=== PATIENT | female | born 1995 | race Caucasian/White ===

== ENCOUNTER 2016-11-20 10:38 | Outpatient (CLI) | payer SELFPAY ==
[2016-11-20] MEDS ORDERED: NORMAL SALINE 10 ML SYRINGE FLUSH IVP PRN (10:44)
[2016-11-20 10:51] VITALS: RESP 18; TEMP 98.1
[2016-11-20 11:21] LABS: MEAN CORPUSCULAR HEMOGLOBIN 21.8 PG (27-31); MEAN PLATELET VOLUME 9.6 FL (7.4-12.2); RDW COEFFICIENT OF VARIATION 16.3 % (11.5-14.5); RED BLOOD COUNT 4.13 10^6/uL (4.20-5.40); WHITE BLOOD COUNT 9.45 10^3/uL (4.8-10.8)
[2016-11-20 11:57] LABS: CHLORIDE 105 meq/L (98-112); POTASSIUM 4.1 meq/L (3.8-5.2); SODIUM 136 meq/L (135-145)
[2016-11-20 11:58] LABS: BILIRUBIN,TOTAL 0.7 mg/dL (0.3-1.2); CALCIUM 8.2 mg/dL (8.7-10.7); CREATININE 0.3 mg/dL (0.50-1.20); EST GLOMERULAR FILTRATION > 60 (>60 ml/min/1.73m(2)); GLUCOSE 70 mg/dL (78-110)
[2016-11-20 11:59] LABS: ASPARTATE AMINO TRANSFERASE 20 IU/L (8-39)
[2016-11-20 12:00] LABS: TOTAL PROTEIN 6.3 g/dL (6.1-8.0)
--- NOTE | 2016-11-23 22:05 | PDOC(PROG) ---
Intake - - Reason for Visit/Chief Complaint: NST Admitted From: Home - LMP: 03/06/16 Estimated Due Date: 12/11/16 Gestational Age in Weeks and Days: 37 Weeks and 3 Days : 2 Para: 1 Term Births: 1 Living Children: 1 - Labs Blood Type and Rh: O+ Group B Strep: Unknown Hepatitis B Surface Antigen: Absent HIV: Negative Rubella Status: Immune VDRL/RPR: Absent Maternal - Vital Signs Last Taken Vital Signs: Vital Signs - Last Taken Temperature 98.1 F 11/20/16 10:50 Pulse Rate 128 H 11/20/16 10:50 Respiratory Rate 18 11/20/16 10:50 Blood Pressure 101/76 11/20/16 10:50 Pulse Ox 98 11/20/16 10:50 - Uterine Activity Uterine Contraction Monitor Mode: External Uterine Contraction Pattern: Absent - Vaginal Discharge Vaginal Bleeding Amount: None Vaginal Discharge Amount: Small Vaginal Discharge Description: Other (please comment) Vaginal Discharge Odor: Odorless Monitoring - Uterine Activity Uterine Contraction Monitor Mode: External Uterine Contraction Pattern: Absent Results - Labs CBC and BMP: 11/20/16 11:02 11/20/16 11:02 Assessment and Plan - Patient Problems (1) Abdominal pain in Status: Acute
== END 2016-11-20 12:13 | disposition home or self-care (01) ==
LOC: OBOP 10:38
PROVIDERS: ATTEND Family Medicine
DX: O26.893 Other specified pregnancy related conditions, third trimester (principal); R10.84 Generalized abdominal pain; W22.8XXA Striking against or struck by other objects, initial encounter; O10.013 Pre-existing essential hypertension complicating pregnancy, third trimester; Z36 Encounter for antenatal screening of mother; Z3A.37 37 weeks gestation of pregnancy
CPT/HCPCS: 80053; 83615; 84550; 85025; 87150

== ENCOUNTER 2016-12-01 13:46 | Outpatient (CLI) | payer SELFPAY ==
[2016-12-01 14:00] VITALS: RESP 20; TEMP 98.2
[2016-12-01] MEDS ORDERED: Sodium Chloride 0.9% 50 ML IV PRN (14:00)
[2016-12-01] MEDS ORDERED: HEPARIN 500 UNIT/5 ML SYRINGE FOR CENTRAL LINE IVP PRN (14:00)
[2016-12-01] MEDS ORDERED: Iron Sucrose Inj 300 MG in Sodium Chloride 0.9% 250 ML IV ONE (14:00)
[2016-12-01] MEDS: NORMAL SALINE 10 ML SYRINGE FLUSH IVP PRN ×2 (14:10→15:50)
== END 2016-12-01 15:51 | disposition home or self-care (01) ==
LOC: IV THERAPY 13:46
PROVIDERS: ATTEND Family Medicine
DX: O26.893 Other specified pregnancy related conditions, third trimester (principal); D64.9 Anemia, unspecified; O99.333 Smoking (tobacco) complicating pregnancy, third trimester; Z3A.38 38 weeks gestation of pregnancy
CPT/HCPCS: 96365; 96366; 99211; J1756; J7050

== ENCOUNTER 2016-12-09 12:05 | Outpatient (CLI) | payer SELFPAY ==
[2016-12-09] MEDS ORDERED: NORMAL SALINE 10 ML SYRINGE FLUSH IVP PRN (12:09)
[2016-12-09 12:33] LABS: HEMATOCRIT 34.3 % (37.0-47.0); HEMOGLOBIN 9.8 g/dL (12.0-16.0); MEAN CORPUSCULAR HGB CONC 28.6 g/dL (33-37); MEAN PLATELET VOLUME 9.9 FL (7.4-12.2); RDW COEFFICIENT OF VARIATION 20.8 % (11.5-14.5); RED BLOOD COUNT 4.46 10^6/uL (4.20-5.40); WHITE BLOOD COUNT 8.07 10^3/uL (4.8-10.8)
[2016-12-09 12:38] VITALS: RESP 20; TEMP 98.1
[2016-12-09 12:45] LABS: ASPARTATE AMINO TRANSFERASE 19 IU/L (8-39); BILIRUBIN,TOTAL 0.7 mg/dL (0.3-1.2); BLOOD UREA NITROGEN 4 mg/dL (7-22); CALCIUM 8.8 mg/dL (8.7-10.7); CHLORIDE 105 meq/L (98-112); CREATININE 0.4 mg/dL (0.50-1.20); EST GLOMERULAR FILTRATION > 60 (>60 ml/min/1.73m(2)); GLUCOSE 82 mg/dL (78-110); POTASSIUM 3.7 meq/L (3.8-5.2); SODIUM 138 meq/L (135-145); TOTAL PROTEIN 6.3 g/dL (6.1-8.0); URIC ACID 3.9 mg/dl (2.5-6.2)
[2016-12-09] MEDS ORDERED: ACETAMINOPHEN 325 MG TABLET PO ONE ×2 (13:00→13:04)
--- NOTE | 2016-12-09 18:40 | DI ---
LIMITED OBSTETRICAL ULTRASOUND, 12/09/2016 12:10 PM Clinical History: Gestational hypertension. Previous Exam: 11/13/2016. ADJUSTED LMP: 03/06/2016. There is a single live IUP currently in vertex presentation. Amnionic fluid content is normal. Amniot ic fluid index is 12.6 cm. activity is observed as follows: Cardiac and extremity. The placenta is posterior corpus and Grade 2. heart rate is 139 beats/minute and regular. BPD, HC, AC, and FL measurements are 97 mm, 333 mm, 352 mm, and 76 mm, respectively. These measurements correspond to EGA values of 39 weeks 5 days, 38 weeks 1 day, 39 weeks 1 day, and 39 weeks 0 days, respectively. Com posite EGA is 39 weeks 0 days. The US EDC is 12/16/2016. EDC by adjusted LMP is 12/11/2016. LMP percenti le is 58%. Estimated weight is 3658 g, plus or minus, 534 g. Well formed distal femoral epiphys es are visualized. Readin. Single live fetus with vertex presentation and normal amniotic fluid content. Placenta is posteri or corpus and grade 2. Amnionic fluid index is 12.6 cm. 2. Composite EGA is 39 weeks 0 days with an ultrasound EDC of 12/16/2016. Based on the adjusted LMP of 03/06/2016, the EDC would be 12/11/2016. 3. LMP percentile is 58%. Estimated weight is 3658 g, plus or minus, 534 g.
== END 2016-12-09 14:30 | disposition home or self-care (01) ==
LOC: OBOP 12:05
PROVIDERS: ATTEND Family Medicine
DX: O13.3 Gestational [pregnancy-induced] hypertension without significant proteinuria, third trimester (principal); Z3A.40 40 weeks gestation of pregnancy
CPT/HCPCS: 59025; 76815; 80053; 83615; 84550; 85025; 99211

== ENCOUNTER → 2016-12-09 | Outpatient (CLI) | payer SELFPAY ==
[2016-12-09 12:38] LABS: BILIRUBIN,URINE NEGATIVE (NEG); CLARITY,URINE CLEAR (CLEAR); GLUCOSE, URINE (UA) NEGATIVE (NEG); LEUKOCYTE ESTERASE ,URINE MODERATE (NEG); NITRATE,URINE NEGATIVE (NEG); OCCULT BLOOD,URINE NEGATIVE (NEG); PH,URINE 7.5 (5.0-8.5); PROTEIN,URINE NEGATIVE (NEG)
[2016-12-09 12:58] LABS: URINE SAMPLE TYPE CLEAN CATCH URINE
[2016-12-09 12:59] LABS: BACTERIA,URINE MODERATE; SQUAMOUS EPITHELIAL CELL,UR RARE
== END ==
LOC: MOB LAB 11:33
PROVIDERS: ATTEND Family Medicine
DX: O26.893 Other specified pregnancy related conditions, third trimester (principal); R30.0 Dysuria; Z3A.39 39 weeks gestation of pregnancy
CPT/HCPCS: 81001

== ENCOUNTER 2016-12-11 00:37 | Inpatient (IN) | payer SELFPAY ==
[2016-12-11] MEDS ORDERED: TERBUTALINE SULFATE 1 MG/1 ML SDV SUBCUT PRN (00:41)
[2016-12-11] MEDS ORDERED: Nalbuphine Inj 20 MG/ML Ampule IVP PRN ×2 (00:41→10:14)
[2016-12-11] MEDS ORDERED: NORMAL SALINE 10 ML SYRINGE FLUSH IVP PRN (00:41)
[2016-12-11] MEDS ORDERED: NALOXONE 0.4 MG/1 ML VIAL IVP PRN (00:41)
[2016-12-11] MEDS ORDERED: Naloxone Inj 0.01 MG in Normal Saline Flush 1 ML IVP PRN (00:41)
[2016-12-11] MEDS ORDERED: CefOXitin Inj 2 GM in Sodium Chloride 0.9% 100 ML IV PRN (00:41)
[2016-12-11] MEDS ORDERED: Metoclopramide Inj 10 MG/2 ML VIAL IV PRN (00:41)
[2016-12-11] MEDS ORDERED: CITRIC ACID/SODIUM CITRATE 30 ML CUP PO PRN (00:41)
[2016-12-11] MEDS ORDERED: ePHEDrine Inj 5 MG in Normal Saline Flush 1 ML IVP PRN (00:41)
[2016-12-11] MEDS ORDERED: Lidocaine 1% 10 MG/ML - 20 ML VIAL SUBCUT PRN (00:41)
[2016-12-11] MEDS ORDERED: METHYLERGONOVINE MALEATE 0.2 MG/1 ML VIAL IM PRN ×2 (00:41→10:14)
[2016-12-11] MEDS ORDERED: Phenylephrine Inj 50 MCG in Normal Saline Flush 0.5 ML IVP PRN (00:41)
[2016-12-11] MEDS ORDERED: Famotidine Inj 20 MG in Normal Saline Flush 10 ML IVP PRN ×4 (00:41)
[2016-12-11] MEDS ORDERED: BUTORPHANOL TARTRATE 2 MG/1 ML VIAL IVP PRN (00:41)
[2016-12-11] MEDS ORDERED: CALCIUM CARBONATE 500 MG (TUMS) CHEWABLE TABLET PO PRN ×2 (00:41→10:14)
[2016-12-11] MEDS ORDERED: OXYTOCIN 10 UNIT/1 ML IM PRN (00:41)
[2016-12-11] MEDS ORDERED: LIDOCAINE W/ SODIUM BICARB 0.5 ML SYR SUBD PRN (00:41)
[2016-12-11] MEDS ORDERED: ONDANSETRON 4 MG/2 ML VIAL IVP PRN ×2 (00:41→10:14)
[2016-12-11] MEDS ORDERED: diphenhydrAMINE 50 MG/1 ML VIAL IVP PRN ×2 (00:41→10:14)
[2016-12-11] MEDS ORDERED: MISOPROSTOL 200 MCG TABLET RECTAL PRN (00:41)
[2016-12-11] MEDS ORDERED: Carboprost Inj 250 MCG/ML AMP IM PRN ×2 (00:41→10:14)
[2016-12-11 02:01] LABS: HEMATOCRIT 35.3 % (37.0-47.0); HEMOGLOBIN 10.4 g/dL (12.0-16.0); MEAN CORPUSCULAR HEMOGLOBIN 22.4 PG (27-31); MEAN CORPUSCULAR HGB CONC 29.5 g/dL (33-37); MEAN PLATELET VOLUME 9.9 FL (7.4-12.2); RDW COEFFICIENT OF VARIATION 20.9 % (11.5-14.5); RED BLOOD COUNT 4.64 10^6/uL (4.20-5.40); WHITE BLOOD COUNT 9.25 10^3/uL (4.8-10.8)
[2016-12-11 02:10] LABS: ASPARTATE AMINO TRANSFERASE 18 IU/L (8-39); BILIRUBIN,TOTAL 0.6 mg/dL (0.3-1.2); BLOOD UREA NITROGEN 8 mg/dL (7-22); CALCIUM 9.5 mg/dL (8.7-10.7); CHLORIDE 103 meq/L (98-112); CREATININE 0.4 mg/dL (0.50-1.20); EST GLOMERULAR FILTRATION > 60 (>60 ml/min/1.73m(2)); GLUCOSE 85 mg/dL (78-110); POTASSIUM 3.8 meq/L (3.8-5.2); SODIUM 139 meq/L (135-145); TOTAL PROTEIN 6.8 g/dL (6.1-8.0); URIC ACID 3.6 mg/dl (2.5-6.2)
[2016-12-11] MEDS: Lactated Ringers-OB Dept 1,000 ML PRIMARY IV SCH ×2 (02:11→07:25)
[2016-12-11] MEDS: Misoprostol Tab 100 MCG TAB VAGINAL SCH ×2 (02:12→21:44)
[2016-12-11] MEDS: fentaNYL Inj 100 MCG/2 ML VIAL IV PRN ×2 (05:46→06:48)
[2016-12-11] MEDS: Oxytocin 20 Units + LR 1,000 ML IV SCH ×2 (07:33→10:11)
--- NOTE | 2016-12-11 08:20 | OB.DEL.SUM ---
Delivery Note Delivery Summary: Pt is a 21 yo at 40 weeks by first trimester u/s who has had an uncomplicated course with the exception of elevated blood pressures noted in the clinic and at labor and delivery 2 days ago. Her labs, NST and u/s at that time were unremarkable. She presented for cervical ripening this morning and was still 3/thick. She received 1 dose of cytotec and proceeded into active labor. She was c/c/+2 at 0720 and began pushing a short time later. She pushed several times to the delivery of a viable female infant over an intact perineum. The nose and mouth were suctioned with a bulb suction and the cord was doubly clamped by myself and cut by the father of the baby. Baby was crying and then placed on mom's chest. Cord blood and cord gases were sent for analysis. Time of delivery was 07. The placenta delivered spontaneously and intact with a 3 vessel cord at 0733. 20 mU of pitocin were infused but the uterus was still boggy. Therefore, the bladder was drained of 100 cc of clear urine with a red rubber catheter. With bimanual massage, the uterus firmed up nicely and her vaginal bleeding slowed. The vagina and perineum were examined and bilateral superficial periurethral lacerations were noted. They were hemostatic, and thus not repaired. Apgars were 9 at 1 minute and 10 at 5 minutes. Baby weighed 8#3oz and was 20 inches long. Both mom and baby tolerated delivery well and are in stable condition at this time.
[2016-12-11] MEDS ORDERED: Ondansetron ODT Tab 4 MG TAB PO PRN (10:14)
[2016-12-11] MEDS ORDERED: Oxytocin 20 Units + LR 1,000 ML IV SCH (10:14)
[2016-12-11] MEDS ORDERED: Methylergonovine Tab 0.2 MG TAB PO PRN (10:14)
[2016-12-11] MEDS ORDERED: HYDROcodone-APAP 5 MG -325 MG TABLET PO PRN (10:14)
[2016-12-11] MEDS ORDERED: diphenhydrAMINE 25 MG CAPSULE PO PRN (10:14)
[2016-12-11] MEDS ORDERED: DIPH,PERTUSS,TET(ADACEL) VAC/PF 0.5 ML (Tdap) IM SCH (10:14)
[2016-12-11] MEDS ORDERED: ACETAMINOPHEN 325 MG TABLET PO PRN (10:14)
[2016-12-11] MEDS ORDERED: BENZOCAINE/MENTHOL SPRAY 56 GM BOTTLE TOPICAL PRN (10:14)
[2016-12-11] MEDS ORDERED: OXYTOCIN 10 UNIT/1 ML IM ONE (10:14)
[2016-12-11] MEDS ORDERED: GLYCERIN/WITCH HAZEL 1 BOX TOPICAL PRN (10:14)
[2016-12-11] MEDS ORDERED: LANOLIN HPA 40 GM TUBE TOPICAL PRN (10:14)
[2016-12-11] MEDS ORDERED: MISOPROSTOL 200 MCG TABLET RECTAL ONE (10:14)
[2016-12-11] MEDS: IBUPROFEN 800 MG TABLET PO PRN ×2 (11:31→21:46)
[2016-12-11] MEDS: NORMAL SALINE 10 ML SYRINGE FLUSH IVP PRN (15:05)
[2016-12-11] MEDS: DOCUSATE 100 MG CAPSULE PO SCH ×2 (15:25→20:26)
[2016-12-11] MEDS ORDERED: cefTRIAXone Inj 1 GM in Sodium Chloride 0.9% 100 ML IV ONE (19:39)
[2016-12-12 05:51] LABS: HEMATOCRIT 27.8 % (37.0-47.0); HEMOGLOBIN 7.9 g/dL (12.0-16.0); MEAN CORPUSCULAR HGB CONC 28.4 g/dL (33-37); MEAN PLATELET VOLUME 10.9 FL (7.4-12.2); RDW COEFFICIENT OF VARIATION 20.3 % (11.5-14.5); RED BLOOD COUNT 3.59 10^6/uL (4.20-5.40); WHITE BLOOD COUNT 9.66 10^3/uL (4.8-10.8)
[2016-12-12] MEDS ORDERED: Iron Sucrose Inj 300 MG in Sodium Chloride 0.9% 250 ML IV ONE (09:00)
[2016-12-12] MEDS: Prenatal Multivitamin Tab 1 TAB TAB PO SCH (09:09)
[2016-12-12] MEDS: DOCUSATE 100 MG CAPSULE PO SCH ×2 (09:09→20:30)
[2016-12-12] MEDS: NORMAL SALINE 10 ML SYRINGE FLUSH IVP PRN ×2 (09:09→09:10)
[2016-12-12] MEDS: IBUPROFEN 800 MG TABLET PO PRN (10:43)
--- NOTE | 2016-12-12 15:56 | OB.PROGRES ---
Subjective Post Day: 1 Pain Management: PO Powers Catheter: No Flatus: Yes Diet: Regular Girard Feeding Method: Exculsively Ambulating: Yes Concerns / Additional Information: Denies dizziness, chest pain, weakness. Tolerated her iron infusion this morning well. Did have a UTI diagnosed earlier this week but did not excelsior picker the macrobid due to lack of funds. Received 1 dose of rocephin last noc. Baby is having issues with jaundice and poor feeding. Objective - General General Appearance: POSITIVE: No Acute Distress, Cooperative - Cardiovacular Cardiovascular Exam: POSITIVE: RRR, No Murmur Edema: +1 Pedal Edema Extremities: Negative Sam's - Bilaterally - Respiratory Respiratory Exam: POSITIVE: Clear to Auscultation - Bilaterally, Breathing Non Labored Assesstment / Plan (1) Status post normal vaginal delivery Current Visit: Yes Status: Acute Support Text: -routine cares. -breast feeding support needed. -rh positive. -rubella immune. -d/c home probably tomorrow. (2) Iron deficiency anemia Current Visit: Yes Status: Acute Support Text: -pt received 300 mg of IV iron this am, tolerated well. Will repeat venofer in 2 weeks and will check another CBC at that time as well. She is currently asymptomatic from her anemia. Vital signs are also stable. (3) UTI (urinary tract infection) Current Visit: Yes Status: Acute Qualifiers: Urinary tract infection type: acute cystitis Hematuria presence: without hematuria Qualified Description: Acute cystitis without hematuria Qualifier Code(s): (N30.00) Acute cystitis without hematuria Support Text: -this was diagnosed PRIOR to hospitalization (on 12/09), but pt had not started antibiotics due to no money to pay for them. She was complaining of dysuria last noc and was given 1 dose of rocephin. She will get another dose tonight.
[2016-12-12] MEDS ORDERED: cefTRIAXone Inj 1 GM in Sodium Chloride 0.9% 100 ML IV ONE (20:00)
[2016-12-13 05:31] LABS: HEMATOCRIT 27.8 % (37.0-47.0); HEMOGLOBIN 7.7 g/dL (12.0-16.0); MEAN CORPUSCULAR HEMOGLOBIN 21.8 PG (27-31); MEAN CORPUSCULAR HGB CONC 27.7 g/dL (33-37); MEAN PLATELET VOLUME 10.5 FL (7.4-12.2); RDW COEFFICIENT OF VARIATION 20.7 % (11.5-14.5); RED BLOOD COUNT 3.54 10^6/uL (4.20-5.40); WHITE BLOOD COUNT 8.19 10^3/uL (4.8-10.8)
[2016-12-13] MEDS: Prenatal Multivitamin Tab 1 TAB TAB PO SCH (08:16)
[2016-12-13] MEDS: DOCUSATE 100 MG CAPSULE PO SCH (08:16)
[2016-12-13 08:41] VITALS: RESP 16; TEMP 98.3
--- NOTE | 2016-12-13 11:45 | DCSUMMARY ---
Hospitalization Summary Admit Date: 12/11/16 Discharge Date: 12/13/16 Primary Diagnosis:: Gestational Hypertension Delivery Type: Vaginal Hospital Course: Pt had a normal, uncomplicated vaginal delivery. / Postop Complications: Pt had a normal course. Her blood pressures remained in the 130s/80s range. She was not having BARBER or RUQ pain. She was not symptomatic from her anemia, which had been chronic throughout her . She received 1 dose of IV iron on PPD #1. She also received 2 doses of rocephin for a UTI that was diagnosed earlier this week, but the pt had never picked up her oral antibiotics due to lack of funds. She denies dysuria on the day of discharge. Complications: Baby was noted to have BRENDON+, was on the bilirubin protocol. Bilirubin levels never reached levels necessitating phototherapy. She will be followed as an out patient. Exam - Vitals Vital Signs: Vital Signs Temperature 98.3 F Temperature Source Oral Pulse Rate [Apical] 88 Pulse Rate [Pulse Oximeter] 85 Pulse Rate 80 Respiratory Rate 16 Blood Pressure [Right Arm] 136/89 Blood Pressure 145/80 Pulse Ox 97 Oxygen Delivery Method Room Air Height 5 ft 1 in Weight 198 lb - General General Appearance: POSITIVE: No Acute Distress, Cooperative - Head Head Exam: POSITIVE: Normal Inspection - Neck Neck Exam: POSITIVE: Normal Inspection, Full ROM, No Tenderness - Respiratory Respiratory Exam: POSITIVE: Clear to Auscultation - Bilaterally, Breathing Non Labored - Cardiovascular Cardiovascular Exam: POSITIVE: RRR, No Murmur - GI/Abdominal GI/Abdominal Exam: POSITIVE: Normal Bowel Sounds, Non Tender, Non Distended, Soft - Extremities Extremities Exam: POSITIVE: Normal Inspection, Normal Capillary Refill - Neurological Neurological Exam: POSITIVE: Alert, Oriented x 3 - Psychiatric Psychiatric Exam: POSITIVE: Normal Affect, Normal Mood - Integumentary Integumentary Exam: POSITIVE: Warm, Dry, Pallor (slight) Patient Problems - Patient Problem List (1) Status post normal vaginal delivery Current Visit: Yes Status: Acute (2) Iron deficiency anemia Current Visit: Yes Status: Acute Qualifiers: Iron deficiency anemia type: inadequate dietary iron intake Qualified Description: Iron deficiency anemia secondary to inadequate dietary iron intake Qualifier Code(s): (D50.8) Other iron deficiency anemias (3) UTI (urinary tract infection) Current Visit: Yes Status: Acute Qualifiers: Urinary tract infection type: acute cystitis Hematuria presence: without hematuria Qualified Description: Acute cystitis without hematuria Qualifier Code(s): (N30.00) Acute cystitis without hematuria
== END 2016-12-13 12:45 | disposition home or self-care (01) | DRG 775 ==
LOC: OBIP 00:37
PROVIDERS: ADMIT Family Medicine; ATTEND Family Medicine
PROC: 10E0XZZ Delivery of Products of Conception, External Approach (ICD-10-PCS; principal; 2016-12-11)
DX: O13.4 Gestational [pregnancy-induced] hypertension without significant proteinuria, complicating childbirth (principal); O71.82 Other specified trauma to perineum and vulva; Z3A.40 40 weeks gestation of pregnancy; Z37.0 Single live birth
CPT/HCPCS: 36415; 80053; 81003; 83615; 84550; 85025; 85027; 86850; 86900; 86901; J0696; J1756; J2210; J3010; J7050; J7120

== ENCOUNTER 2017-02-24 15:05 | Emergency (ER) | payer SELFPAY ==
[2017-02-24 15:21] VITALS: RESP 14; TEMP 97.6
--- NOTE | 2017-02-24 15:28 | PDOC ---
Neuro Symptoms / Deficit HPI - General Chief Complaint: Neurological Complaints Stated Complaint: FACIAL NUMBNESS Date Seen by Provider: 02/24/17 Time Seen by Provider: 15:23 Source: POSITIVE: Patient Exam Limitations: POSITIVE: No limitations Nurse's Notes Reviewed & Considered: Yes - History of Present Illness Initial Comments: Patient comes in today with a chief complaint of left-sided facial numbness. Patient has 3 day history of increasing left-sided facial numbness left-sided facial droop, and inability to blink her left eye. She denies any fever chills sweats, nausea vomiting or diarrhea, no chest pain, no shortness of breath, no cough. She denies any recent sick contacts. She denies any other neurological symptoms, i.e. no unilateral weakness or lateralizing signs of her extremities. Body Location Affected: REPORTS: Head Timing: REPORTS: Abrupt Duration: >24 hours Severity: Moderate Quality: REPORTS: Other (Numbness) Character of Deficit(s): REPORTS: Left (Left face), Facial, Altered Sensation, Other (Cannot blink her left eye, cannot smile symmetrically with left-sided facial droop.) Usual Ability to Walk/Stand: REPORTS: Walks w/o Assistance Usual Cognition: REPORTS: Alert & Oriented x3 Similar Symptoms Previously: No Recently seen/treated/hospitalized: No Any Prior Injuries Related to Current Complaint?: No - Patient Home Medications Home Medications: Home Medications Ferrous Gluconate 324 mg PO TID #90 tab 11/20/16 Vits W-Ca,Fe,FA(<1Mg) [] 1 each PO DAILY 11/20/16 Docusate Sodium [Colace] 100 mg PO BID #30 cap 12/13/16 - Patient Allergies Allergies/Adverse Reactions: Allergies Allergy/AdvReac Type Severity Reaction Status Date / Time No Known Allergies Allergy Verified 12/12/16 06:57 Past Medical History - heen HEENT History: Denies History Cardiovascular History: Hypertension, Other (please comment) Additional Cardiovasular History: HEART MURMUR Respiratory History: Denies History Gastrointestinal History: Denies History Genitourinary History: Denies History Endocrine History: Denies History Musculoskeletal History: Denies History Prosthesis or Implant: No Neurological History: Denies History Blood Disorders: Denies History Psychiatric History: Denies History Cancer History: Denies History In Past Year Been Physically Harmed or Verbally Threatened: No History of MDRO: No Tobacco Use: Current Every Day Smoker Alcohol Use: None Substance Use Type: None Previous Surgical History: Yes Type / Date of Surgery: tonsilectomy Anesthesia Reactions: No Malignant Hyperthermia: No Significant Family History: No pertinent family hx ROS - Limitations ROS Limitations: No Limitations Constitution: REPORTS: Denies Symptoms Cardiovascular: REPORTS: Denies Cardiac Symptoms Respiratory: REPORTS: Denies Resp Symptoms Neurological: REPORTS: Numbness, Facial Asymmetry (She was inability to raise her left eyebrow and wrinkle her left forehead. She has loss of left eyelid blinked. She is unable to elevate the corner of her mouth on the left.) Gastrointestinal: REPORTS: Denies GI Symptoms Endocrine: REPORTS: Denies Symptoms Musculoskeletal: REPORTS: Denies MS Symptoms Genitourinary: REPORTS: Denies Symptoms Eyes: REPORTS: Other (Dry left eye) ENT: REPORTS: Denies Symptoms Skin: REPORTS: Denies Skin Symptoms Lympathic: REPORTS: Denies Lympathic Symptoms Immunologic: POSITIVE: Denies Symptoms Psychiatric: POSITIVE: Denies Psych Symptoms Neuro Symptoms / Deficit Exam - General Appearance General Appearance: POSITIVE: No Acute Distress - HEENT HEENT: POSITIVE: Ears Inspection Nml, Nose Inspection Nml, Pharynx Inspect. Nml , Other (Left-sided facial droop, with inability to raise her left eyebrow, inability to raise left side of her lips.) - Pupil Size Pupil Size: 4 mm: Bilateral - Neuro / Psych Higher Functions: POSITIVE: Oriented to Person, Oriented to Place, Oriented to Time, Normal Speech, Normal Cognition, Appropriate Mood, Appropriate Affect Cranial Nerves: POSITIVE: Facial Palsy (Left-sided facial palsy with forehead involved), Forehead Involved Cerebellar: POSITIVE: Normal As Tested Peripheral Exam: POSITIVE: Sensation Normal, Motor Normal, Reflexes Normal Reflexes: Patellar (R): 3+, Patellar (L): 3+, Radial (R): 3+, Radial (L): 3+ - Neck Neck: POSITIVE: Supple, Non-Tender - Respiratory Respiratory: POSITIVE: No Respiratory Distress, Breath Sounds Normal - Cardiovascular Cardiovascular: POSITIVE: Regular Rate & Rhythm, Heart Sounds Normal - Abdomen Abdomen: Soft: (All Quadrants), Normal Bowel Sounds: (All Quadrants), Denies Tenderness: (All Quadrants) - Skin Skin: POSITIVE: Intact, Normal For Race, Warm, Dry, No Rash - Extremities Extremity: Non-Tender: (All Extremities), Normal ROM: (All Extremities), Normal Inspection: (All Extremities) Neuro Symptom/Deficit Progress - Results Reviewed by me Lab Results Reviewed: Yes Lab Results:: Laboratory Results 02/24/17 Range/Units 15:33 WBC 10.89 H (4.8-10.8) 10^3/uL RBC 5.21 (4.20-5.40) 10^6/uL Hgb 13.1 (12.0-16.0) g/dL Hct 41.9 (37.0-47.0) % MCV 80.4 L (81-99) FL MCH 25.1 L (27-31) PG MCHC 31.3 L (33-37) g/dL RDW Std Deviation 47.5 (39-50) fL RDW Coeff of Duane 16.1 H (11.5-14.5) % Plt Count 408 H (140-350) 10*3/uL MPV 9.4 (7.4-12.2) FL Immature Gran % (Auto) 0.2 (0-5) % Neut % (Auto) 68.8 (50-80) % Lymph % (Auto) 19.7 (10-50) % [place] % (Auto) 10.1 (5-15) % Eos % (Auto) 0.8 (0-8) % Baso % (Auto) 0.4 (0-1) % Immature Gran # (Auto) 0.02 10*3/UL Neut # (Auto) 7.49 10*3/UL Lymph # (Auto) 2.15 10*3/uL [place] # (Auto) 1.10 H (0.3-0.8) 10*3/UL Eos # (Auto) 0.09 10*3/UL Baso # (Auto) 0.04 10*3/UL WBC Morphology Comment Normal morphology (NORM) Plt Morphology Comment Normal morphology (NORM) RBC Morph Comment Normal morphology (NORM) Sodium 139 (135-145) meq/L Potassium 4.4 (3.8-5.2) meq/L Chloride 104 (98-112) meq/L Carbon Dioxide 23 (23-33) meq/L Anion Gap 12 (5-20) BUN 19 (7-22) mg/dL Creatinine 0.6 (0.50-1.20) mg/dL Estimated GFR > 60 (>60 ml/min/1.73m(2)) BUN/Creatinine Ratio 31.66 H (6-20) Glucose 84 (78-110) mg/dL Calculated Osmolality 288.0 (267-292) mOsm/kg Calcium 9.7 (8.7-10.7) mg/dL Total Bilirubin 0.4 (0.3-1.2) mg/dL AST 27 (8-39) IU/L ALT 54 H (9-52) IU/L Alkaline Phosphatase 115 (38-126) IU/L C-Reactive Protein 0.6 (0.0-0.9) mg/dL Total Protein 7.6 (6.1-8.0) g/dL Albumin 4.4 (3.5-4.8) g/dL Globulin 3.2 (2.50-4.10) g/dL Albumin/Globulin Ratio 1.30 (1.3-2.0) mg/g - Patient's Progress Pain Medication Addressed: POSITIVE: Not Applicable Status: POSITIVE: Improved MDM / ED Course: Patient was evaluated, an IV started, blood drawn and sent to the lab for studies. Patient received a liter of normal saline. Her tachycardia improved. Findings: Facial paralysis consistent with Meyer's palsy. CBC shows white count of 10.8. Assessment: Meyer's palsy. Next Plan: Discharge home, patch for left eye, antibiotic ointment prescribed. She is to follow-up with her primary care physician Dr. Herbert in 2-3 days if there is no improvement. Antibiotics Given: No CVA/Syncope Quality Measure Initiative: POSITIVE: NIH Stroke Scale (1 for facial asymmetry and loss of sharp discrimination of her face.) - Consult Counseled: POSITIVE: Patient, RE: Lab Results, RE: DX Patient Care Time - Estimated PCT Patient Care Time (In Minutes): 20 Vital Signs - Recent Vital Signs Vital Signs: Vital Signs (Last 8 hours) Temp Pulse Resp BP Pulse Ox 02/24/17 15:18 97.6 F 110 H 14 138/95 97 02/24/17 15:05 97.6 F 110 H 14 129/103 97 - VS Reviewed Vital Signs Reviewed: Yes Discharge Clinical Impression: Meyer's palsy Discharge Disposition: Discharged to Home Condition: Stable Patient Instructions Given at Discharge: Meyer Palsy (ED)
[2017-02-24] MEDS ORDERED: Sodium Chloride 0.9% 1,000 ML PRIMARY IV ONE (15:30)
[2017-02-24 15:36] LABS: BASOPHILS # (AUTO) 0.04 10*3/UL; BASOPHILS % (AUTO) 0.4 % (0-1); EOSINOPHILS # (AUTO) 0.09 10*3/UL; EOSINOPHILS % (AUTO) 0.8 % (0-8); HEMATOCRIT 41.9 % (37.0-47.0); HEMOGLOBIN 13.1 g/dL (12.0-16.0); LYMPHOCYTES # (AUTO) 2.15 10*3/uL; MEAN CORPUSCULAR HEMOGLOBIN 25.1 PG (27-31); MEAN CORPUSCULAR HGB CONC 31.3 g/dL (33-37); MEAN CORPUSCULAR VOLUME 80.4 FL (81-99); MEAN PLATELET VOLUME 9.4 FL (7.4-12.2); MONOCYTES % (AUTO) 10.1 % (5-15); NEUTROPHILS # (AUTO) 7.49 10*3/UL; NEUTROPHILS % (AUTO) 68.8 % (50-80); PLATELET MORPHOLOGY COMMENT NORMAL MORPHOLOGY (NORM); RBC MORPHOLOGY COMMENT NORMAL MORPHOLOGY (NORM); RED BLOOD COUNT 5.21 10^6/uL (4.20-5.40); WBC MORPHOLOGY COMMENT NORMAL MORPHOLOGY (NORM)
[2017-02-24] MEDS ORDERED: Sodium Chloride 0.9% 1,000 ML ONE (15:39)
[2017-02-24 15:51] LABS: BLOOD UREA NITROGEN 19 mg/dL (7-22); BUN/CREATININE RATIO 31.66 (6-20); CALCIUM 9.7 mg/dL (8.7-10.7); EST GLOMERULAR FILTRATION > 60 (>60 ml/min/1.73m(2)); SERUM ALBUMIN 4.4 g/dL (3.5-4.8)
== END 2017-02-24 16:15 | disposition home or self-care (01) ==
LOC: ER 15:05
DX: G51.0 Bell's palsy (principal); R29.810 Facial weakness; Z72.0 Tobacco use
CPT/HCPCS: 36415; 80053; 85025; 86140; 96360; 99283; J7030